=== PATIENT | female | born 1990 | race Two or more races ===

== ENCOUNTER 2019-08-05 05:24 | Day surgery (SDC) | payer OTHER ==
[2019-07-20 10:46] LABS: APPEARANCE,URINE CLEAR; BILIRUBIN,URINE NEGATIVE (NEGATIVE); COLOR,URINE YELLOW; GLUCOSE, URINE NEGATIVE (NEGATIVE); KETONES,URINE NEGATIVE (NEGATIVE); LEUKOCYTE ESTERASE,URINE NEGATIVE (NEGATIVE); NITRITE,URINE NEGATIVE (NEGATIVE); PROTEIN,URINE NEGATIVE (NEGATIVE); URINE SPECIFIC GRAVITY 1.019; UROBILINOGEN,URINE NEGATIVE mg/dL (<2.0)
[2019-07-20 10:48] LABS: HEMATOCRIT 35.7 % (36.0-47.0); HEMOGLOBIN 12.3 g/dL (12.0-15.5); MEAN CORPUSCULAR HEMOGLOBIN 30.4 pg (27.0-33.4); MEAN CORPUSCULAR HGB CONC 34.3 g/dL (32.0-36.0); MEAN CORPUSCULAR VOLUME 89 fl (80-97); PLATELET COUNT 252 10^3/uL (150-450); RED BLOOD COUNT 4.03 10^6/uL (3.72-5.28); RED CELL DISTRIBUTION WIDTH 14.6 % (11.5-14.0); WHITE BLOOD COUNT 6.4 10^3/uL (4.0-10.5)
[~2019-08-05 05:24] MED LIST: GLYCOPYRROLATE 1 MG/5 ML VIAL ONE; KETOROLAC TROMETHAMINE 60 MG/2 ML SDV ONE; LACTATED RINGERS 1000 ML IV PRN; LIDOCAINE 0.5% INJ-PF (5 MG/ML) 50 ML SDV SUBCUT PRN; NEOSTIGMINE METHYLSULFATE 10 MG/10 ML VIAL ONE; ROCURONIUM BROMIDE INJ 50 MG/5 ML VIAL IV ONE; SUCCINYLCHOLINE CHLORIDE INJ 200 MG/10 ML VIAL ONE
[2019-08-05] MEDS ORDERED: FENTANYL CITRATE INJ/PF 100 MCG/2 ML AMPUL ONE (06:52)
[2019-08-05] MEDS ORDERED: DEXAMETHASONE SOD PHOSPHATE INJ 4 MG/1 ML VIAL ONE (06:53)
[2019-08-05] MEDS ORDERED: PROPOFOL INJ 200 MG/20 ML VIAL IV ONE (06:53)
[2019-08-05] MEDS ORDERED: MIDAZOLAM 2 MG/2 ML INJ ONE (06:53)
[2019-08-05] MEDS ORDERED: ONDANSETRON HCL INJ/PF 4 MG/2 ML SDV ONE (06:53)
[2019-08-05] MEDS ORDERED: MORPHINE SULFATE 10 MG/ML INJ IV PRN (07:09)
[2019-08-05] MEDS ORDERED: MEPERIDINE HCL/PF INJ 25 MG/1 ML DISP.SYRIN IV PRN (07:09)
[2019-08-05] MEDS ORDERED: PROMETHAZINE HCL INJ 25 MG/1 ML VIAL IV PRN (07:09)
[2019-08-05] MEDS ORDERED: FENTANYL CITRATE INJ/PF 100 MCG/2 ML AMPUL IV PRN ×3 (07:09)
[2019-08-05] MEDS ORDERED: DIPHENHYDRAMINE HCL 50 MG/ML VIAL IV PRN (07:09)
[2019-08-05] MEDS ORDERED: BUPIVACAINE HCL 0.25 % INJ/PF (2.5 MG/1 ML) 30 ML VIAL ONE (07:15)
--- NOTE | 2019-08-05 09:45 | Operative Report ---
Operative Report DATE OF SURGERY: 08/05/19 PREOPERATIVE DIAGNOSIS: left ovarian mass. Pelvic pain POSTOPERATIVE DIAGNOSIS: same as above with addition of adhesions anterior abdominal wall and omentum OPERATION: Laparoscopic oophorectomy: Left with lysis of adhesions between omentum and anterior abdominal wall. SURGEON: IMAN ROY ANESTHESIA: GA TISSUE REMOVED OR ALTERED: Left ovary COMPLICATIONS: None ESTIMATED BLOOD LOSS: 30 cc INTRAOPERATIVE FINDINGS: Normal appearing uterus, bilateral fallopian tubes and right ovary. Left ovary enlarged with what appeared to be a dermoid containing hair and fatty tissue. Liver edge appeared normal. Adhesions between anterior abdominal wall and omentum PROCEDURE: IV fluids: per anesthesia record Urinary output: 50 cc Findings: Normal-appearing uterus bilateral fallopian tubes and right ovary. Left ovary enlarged with dermoid within noted to have hair and fatty appearing tissue. Liver edge seen and appears normal. Adhesions between anterior abdominal wall and omentum Position: To recovery room in stable condition Description of procedure: The patient was taken to the operating room and general anesthesia was administered and found to be adequate. She was then placed on the OR table in the dorsal lithotomy position. The Patient was prepped and draped in usual sterile fashion. Timeout was taken. A bivalve speculum to visualize the cervix. The anterior lip of the cervix was then grasped with a single tooth tenaculum and an acorn uterine manipulator was placed. At this time attention was turned of the patient's abdomen and sterile gloves were donned a 1 cm infra umbilical incision was made the and carried down to the level of the rectus fascia. The rectus fascia was then grasped with 2 [place] clamps elevated and incised with Lopez scissors. A digital sweep was done noting entry into the peritoneum. The fascia was tagged bilaterally with 0-vicryl suture. A #10 trocar was positioned and CO2 gas was used to insufflate the abdomen to a quantity sufficient for the laparoscopy. The laparoscope was inserted and a survey was done of the abdomen pictures were obtained. Findings noted as above. An adhesion between the omentum and the anterior abdominal wall was noted in direct line of the pelvis. This was taken down with the LigaSure in a segmental fashion and hemostasis was noted. The left ovary was identified and was grasped and hot scissors were used to incise the capsule of the right ovary. Care was taken to avoid rupture of contents but a small amount of cyst fluid was noted. This fluid was a pale yellow and was immediately suctioned at the site of the ovary and from the pelvis. Further dissection was attempted near the utero-ovarian ligament but a small amount of hair could be seen in this area. Decision was made at this time for oophorectomy due to tumor appearing to evolve the entire ovary. The utero-ovarian ligament and IP ligament on the right was taken down with the LigaSure in a segmental fashion and hemostasis was noted. A #10 endoscopic bag was introduced and the specimen was placed within the bag tissue was removed through the umbilicus with just slight extension of the adhesion care was taken to keep the tissue within the bag during removal this will be sent to the lab for later pathologic analysis as left ovarian mass. Copious irrigation was done of the pelvis and pelvic organs. This was done until clear fluid was noted. Pictures were obtained. At this point the procedure was terminated. All instrument removed from the patient's abdomen and CO2 gas was allowed to escape. The infraumbilical port was removed. The fascia was closed with 0 Vicryl suture previously placed. No deficit greater than 1/2 cm remained. The skin was closed with 3-0 Monocryl in a series of interrupted stitiches. The skin incision was then clean dried and Dermabond was applied over the skin incision. All instrument sponge and needle counts were correct x3 for the procedure the patient tolerated the procedure well. She will proceed to recovery room in stable condition
--- NOTE | 2019-08-05 09:55 | Discharge Summary ---
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 May shower and pat incisions dry. Diet as tolerated Encourage ambulation and deep breathing. Call if symptoms of fever, chills, unable to void, abnormal bleeding or malodorous discharge Follow up with Dr. Muller in two weeks at our office Prescriptions: Ibuprofen [Motrin 800 mg Tablet] 800 mg PO Q8H PRN #30 tab PRN Reason: Hydrocodone/Acetaminophen [Kellogg 5-325 Tablet] 1 each PO Q4HP PRN 5 Days #30 tablet PRN Reason: Respiratory Treatments at Home: Deep Breathing/Coughing Discharge Activity: Activity As Tolerated, No Driving - no driving while still taking narcotics, No Lifting Over 10 Pounds Home Care Assistance: None Needed Report the Following to Your Physician Immediately: Shortness of Breath, Nausea, Vomiting, Increase in Pain, Fever over 101 Degrees, Unusual Bleeding, Drainage- Foul Smelling, Seizure, IV Site Infection Signs
[2019-08-05] MEDS ORDERED: OXYCODONE-ACETAMINOPHEN 5-325 MG TABLET PO PRN ×2 (11:00→11:01)
[2019-08-05] MEDS ORDERED: KETOROLAC TROMETHAMINE INJ/PF 30 MG/1 ML SDV IM PRN (11:00)
[2019-08-05] MEDS ORDERED: IBUPROFEN 800 MG TABLET PO PRN (11:00)
[2019-08-05 13:22] VITALS: BP 106/58
== END 2019-08-05 11:15 | disposition home or self-care (01) ==
LOC: OROUT 05:24
PROVIDERS: ATTEND Obstetrics & Gynecology
DX: D27.1 Benign neoplasm of left ovary (principal); K66.0 Peritoneal adhesions (postprocedural) (postinfection); R10.2 Pelvic and perineal pain; Z87.891 Personal history of nicotine dependence
CPT/HCPCS: 36415; 85027; 81025; 81001; 88307 ×2; 00840; 58661; J2250; J3490 ×2; J1100; J1885; J3010; J2710; J0330; J2405; J2704; 840; 88305